=== PATIENT | female | born 1940 | race American Indian/Alaskan Native ===

== ENCOUNTER 2019-05-20 12:27 | Emergency (ER) | payer MEDICARE ==
[2019-05-20 13:00] VITALS: BP 149/60
--- NOTE | 2019-05-20 13:05 | Emergency Department Report ---
Chief Complaint: Pain General Stated Complaint: PAIN IN LEGS/BUTTOCKS/THIGHS Time Seen by Provider: 05/20/19 12:58 - HPI History of Present Illness: 79 y/o female comes in for 2 month of lower back pain that radiates down her buttock and travels down her legs. No falls no recent injuries. No urinary symptoms. Has had CT of back recently. Has had back surgery with laminectomy. - Exam Physical Exam: AxO times 3. NAD positive right straight leg test ambulating well. MSE screening note: Focused history and physical exam performed. Due to findings the following was ordered: 79 y/o female comes in for 2 month of lower back pain that radiates down her buttock and travels down her legs. No falls no recent injuries. No urinary symptoms. Has had CT of back recently. Has had back surgery with laminectomy. Referral to her PCP and back specialist. ED Disposition for [facility] [place] Disposition: Z-07 MED SCREENING EXAM-LEFT Is pt being admited?: No Does the pt Need Aspirin: No Condition: Stable Referrals: Your, PCP [Other] - 3-5 Days
== END 2019-05-20 15:09 | disposition left against medical advice (07) ==
LOC: ED 12:27
DX: M79.605 Pain in left leg (principal); M79.604 Pain in right leg; Z53.21 Procedure and treatment not carried out due to patient leaving prior to being seen by health care provider

== ENCOUNTER 2019-07-13 12:24 | Emergency (ER) | payer MEDICARE ==
[2019-07-13 12:55] VITALS: BP 138/68
[2019-07-13] MEDS ORDERED: ACETAMINOPHEN 325 MG TAB PO ONE (12:57)
--- NOTE | 2019-07-13 12:59 | Emergency Department Report ---
Chief Complaint: Arrhythmia/Palpitations Stated Complaint: PAIN IN BUTTOCK,LEG THIGH Time Seen by Provider: 07/13/19 12:58 - HPI History of Present Illness: 79 y/o female on home outpatient physical therapy, on home gabapentin and tinazidine for right leg pain muscle pain p/w rle radicular pain and resolved dyspnea and heart racing no dvt pe risk factors walks with a steady gait non focal motor exam exam labs ekg xr chest, rle dvt study reassess - Exam Vital Signs: Vital Signs 07/13/19 12:52 Temperature 97.2 F L Pulse Rate 82 Respiratory 18 Rate Blood Pressure 138/68 O2 Sat by Pulse 9 L Oximetry MSE screening note: Focused history and physical exam performed. Due to findings the following was ordered: ED Disposition for MSE Condition: Stable
--- NOTE | 2019-07-13 13:30 | XRay Report ---
CHEST PA AND LATERAL VIEWS INDICATION: hx of sob heart racing. COMPARISON: None. FINDINGS: Support devices: None. Heart: Within normal limits. Lungs/Pleura: No acute pulmonary or pleural findings. Midthoracic spondylosis is noted. No acute fracture is identified. IMPRESSION: 1. No acute findings. Signer Name: Dudley Davis MD Signed: 07/13/2019 1:25 PM Workstation Name: [id number]
--- NOTE | 2019-07-13 13:55 | Vascular Lab Report ---
DUPLEX DOPPLER LOWER EXTREMITY VEINS, RIGHT INDICATION: rle pain swelling. TECHNIQUE: Duplex doppler imaging was performed through the veins of the right lower extremity using venous comp ression and other maneuvers. COMPARISON: No relevant prior imaging study available. FINDINGS: Right Common femoral vein: Negative. Right Superficial femoral vein: Negative. Right Popliteal vein: Negative. Right Calf veins: Negative. Additional findings: None.. IMPRESSION: 1. No sonographic evidence for DVT in the right lower extremity. Signer Name: Tony Sarmiento MD Signed: 07/13/2019 1:50 PM Workstation Name: [email or web address]
[2019-07-13 14:52] LABS: INR 1.02 (0.87-1.13)
[2019-07-13 15:00] LABS: Alanine Aminotransferase 11 units/L (7-56); Albumin 4.3 g/dL (3.9-5); BUN/Creatinine Ratio 13; Blood Urea Nitrogen 9 mg/dL (7-17); Calcium 9.8 mg/dL (8.4-10.2); Hemolysis Index 19
--- NOTE | 2019-07-13 16:59 | Emergency Department Report ---
ED General Adult HPI - General Chief complaint: Arrhythmia/Palpitations Stated complaint: PAIN IN BUTTOCK,LEG THIGH Time Seen by Provider: 07/13/19 16:20 Source: patient Mode of arrival: Ambulatory Limitations: No Limitations - History of Present Illness Initial comments: This is a 79-year-old -[place] female who presents to the emergency room with right buttocks pain radiating to right leg for 3 months. Patient states her primary care doctor Obdesireekwe artery her on gabapentin and refer her to a physical therapist which has not changed symptoms. Patient reports occasional warm and sensation of heartbeat in right Calf. She also reports occasional palpitations which have resolved. Past medical history of prediabetes, hypertension, and TIA. She denies recent injury, shortness of breath, chest pain, weakness, or numbness or tingling. Onset/Timin -: month(s) Location: lower extremity (right) Severity scale (0 -10): 0 Quality: aching Consistency: intermittent Improves with: none Worsens with: movement Associated Symptoms: denies: chest pain, fever/chills, headaches, rash, shortness of breath, syncope, weakness Treatments Prior to Arrival: NSAID - Related Data Allergies Allergy/AdvReac Type Severity Reaction Status Date / Time No Known Allergies Allergy Verified 05/20/19 12:29 ED Review of Systems ROS: Stated complaint: PAIN IN BUTTOCK,LEG THIGH Other details as noted in HPI Constitutional: denies: chills, fever Respiratory: denies: cough, shortness of breath, wheezing Cardiovascular: palpitations. denies: chest pain Gastrointestinal: denies: abdominal pain, nausea, diarrhea Musculoskeletal: arthralgia (right leg pain). denies: back pain, joint swelling Skin: denies: rash, lesions Neurological: denies: headache, weakness, paresthesias Psychiatric: denies: anxiety, depression ED Past Medical Hx - Past Medical History Previous Medical History?: Yes Hx Hypertension: Yes Hx Diabetes: Yes (pre) Additional medical history: TIA - Surgical History Past Surgical History?: Yes Additional Surgical History: LUMBAR SURGERY - Social History Smoking Status: Never Smoker Substance Use Type: None ED Physical Exam - General Limitations: No Limitations General appearance: alert, in no apparent distress - Respiratory Respiratory exam: Present: normal lung sounds bilaterally. Absent: respiratory distress, wheezes, rales, rhonchi, stridor - Cardiovascular Cardiovascular Exam: Present: regular rate, normal rhythm. Absent: systolic murmur, diastolic murmur, rubs, gallop - GI/Abdominal GI/Abdominal exam: Present: soft, normal bowel sounds. Absent: distended, tenderness, guarding, rebound, rigid - Expanded Lower Extremity Exam Right Hip exam: Present: normal inspection, full ROM. Absent: tenderness, swelling, abrasion, laceration, ecchymosis, deformity, crepidus, dislocation, erythema, external rotation, internal rotation, shortening, pelvic stability Upper Leg exam: Present: normal inspection, full ROM Knee exam: Present: normal inspection, full ROM, full knee extension. Absent: tenderness, swelling, abrasion, laceration, ecchymosis, deformity, crepidus, dislocation, erythema, effusion, pain w/ pronation/supination, posterior draw sign, pain/laxity with valgus, pain/laxity with varus Lower Leg exam: Present: normal inspection, full ROM. Absent: tenderness, swelling, abrasion, laceration, ecchymosis, deformity, crepidus, dislocation, erythema, palpable cord, Erick's sign Ankle exam: Present: normal inspection, full ROM. Absent: tenderness, swelling, abrasion, laceration, ecchymosis, deformity, crepidus, dislocation, erythema, anterior draw sign Foot/Toe exam: Present: normal inspection, full ROM Neuro vascular tendon exam: Present: no vascular compromise Gait: Positive: observed and normal - Neurological Exam Neurological exam: Present: alert, oriented X3, normal gait - Psychiatric Psychiatric exam: Present: normal affect, normal mood - Skin Skin exam: Present: warm, dry, intact, normal color. Absent: rash ED Course Vital Signs 07/13/19 12:52 Temperature 97.2 F L Pulse Rate 82 Respiratory 18 Rate Blood Pressure 138/68 O2 Sat by Pulse 98 Oximetry ED Medical Decision Making - Lab Data Result diagrams: 07/13/19 14:02 Lab Results 07/13/19 07/13/19 07/13/19 Range/Units 14:02 14:02 14:02 PT 13.5 (12.2-14.9) Sec. INR 1.02 (0.87-1.13) Sodium 142 (137-145) mmol/L Potassium 4.2 (3.6-5.0) mmol/L Chloride 102.4 (98-107) mmol/L Carbon Dioxide 26 (22-30) mmol/L Anion Gap 18 mmol/L BUN 9 (7-17) mg/dL Creatinine 0.7 (0.7-1.2) mg/dL Estimated GFR > 60 ml/min BUN/Creatinine Ratio 13 % Glucose 106 H (65-100) mg/dL Calcium 9.8 (8.4-10.2) mg/dL Magnesium 1.70 (1.7-2.3) mg/dL Total Bilirubin 0.20 (0.1-1.2) mg/dL AST 24 (5-40) units/L ALT 11 (7-56) units/L Alkaline Phosphatase 89 (35-129) units/L Total Creatine Kinase 131 (30-135) units/L NT-Pro-B Natriuret Pep (0-900) pg/mL Total Protein 7.8 (6.3-8.2) g/dL Albumin 4.3 (3.9-5) g/dL Albumin/Globulin Ratio 1.2 % TSH 1.560 (0.270-4.200) mlU/mL 07/13/19 Range/Units 14:02 PT (12.2-14.9) Sec. INR (0.87-1.13) Sodium (137-145) mmol/L Potassium (3.6-5.0) mmol/L Chloride (98-107) mmol/L Carbon Dioxide (22-30) mmol/L Anion Gap mmol/L BUN (7-17) mg/dL Creatinine (0.7-1.2) mg/dL Estimated GFR ml/min BUN/Creatinine Ratio % Glucose (65-100) mg/dL Calcium (8.4-10.2) mg/dL Magnesium (1.7-2.3) mg/dL Total Bilirubin (0.1-1.2) mg/dL AST (5-40) units/L ALT (7-56) units/L Alkaline Phosphatase (35-129) units/L Total Creatine Kinase (30-135) units/L NT-Pro-B Natriuret Pep 74.77 (0-900) pg/mL Total Protein (6.3-8.2) g/dL Albumin (3.9-5) g/dL Albumin/Globulin Ratio % TSH (0.270-4.200) mlU/mL - EKG Data -: No EKG Interpreted by Me (EKG interpreted by attending) EKG shows normal: sinus rhythm Rate: normal - Radiology Data Radiology results: report reviewed DUPLEX DOPPLER LOWER EXTREMITY VEINS, RIGHT INDICATION: rle pain swelling. TECHNIQUE: Duplex doppler imaging was performed through the veins of the right lower extremity using venous compression and other maneuvers. COMPARISON: No relevant prior imaging study available. FINDINGS: Right Common femoral vein: Negative. Right Superficial femoral vein: Negative. Right Popliteal vein: Negative. Right Calf veins: Negative. Additional findings: None.. IMPRESSION: 1. No sonographic evidence for DVT in the right lower extremity. CHEST PA AND LATERAL VIEWS INDICATION: hx of sob heart racing. COMPARISON: None. FINDINGS: Support devices: None. Heart: Within normal limits. Lungs/Pleura: No acute pulmonary or pleural findings. Midthoracic spondylosis is noted. No acute fracture is identified. IMPRESSION: 1. No acute findings. - Medical Decision Making This is a 79-year-old female who presents to the emergency room with palpitations and right lower extremity pain. Patient states palpitations are resolved. Workup: PT/INR, CK, BNP, TSH, and CMP. All labs are unremarkable. A duplex Doppler of left lower extremity was obtained and negative for DVT. Chest x-ray negative for acute cardiopulmonary findings. No unilateral leg swelling or warmth to right calf on exam. Patient is nontoxic appearing, VSS. No lymphangitic spread visible. No fluid pockets or fluctuance concerning for abscess noted. Low concern for cellulitis or osteomyelitis. Symptoms not consistent with heart failure. Instructed patient to follow up with primary c are physician in next 48 hours as well. Patient given strict return instructions. Patient discharged home stable. Critical care attestation.: If time is entered above; I have spent that time in minutes in the direct care of this critically ill patient, excluding procedure time. ED Disposition Clinical Impression: Pain of right leg, Palpitations Disposition: - TO HOME OR SELFCARE Is pt being admited?: No Condition: Stable Instructions: Arthralgia (ED) Additional Instructions: Follow-up with your primary care doctor in 2-3 days. Continue going to physical therapy as your primary care doctor instructed. Return to the emergency room if you have worsening symptoms such as warmth, redness, swelling to right leg, shortness of breath, palpitations, or chest pain. Referrals: DELBERT ALMARAZ MD [Primary Care Provider] - 3-5 Days Time of Disposition: 17:03
== END 2019-07-13 17:25 | disposition home or self-care (01) ==
LOC: ED 12:24
DX: M25.551 Pain in right hip (principal); R00.2 Palpitations; I10 Essential (primary) hypertension; E11.9 Type 2 diabetes mellitus without complications; Z98.890 Other specified postprocedural states
CPT/HCPCS: 36415; 71046; 80048; 80053; 82550; 83735; 83880; 84443; 85610; 93005; 93010

== ENCOUNTER 2020-03-27 14:50 | Emergency (ER) | payer MEDICARE ==
[2020-03-27 15:01] VITALS: BP 152/63
--- NOTE | 2020-03-27 15:01 | Event Note ---
ED Screening Note Date of service: 03/27/20 Time: 15:00 ED Screening Note: c/o painful lump atop coccyx x 1 month pain is worsening per pt no fever This initial assessment/diagnostic orders/clinical plan/treatment(s) is/are subject to change based on patients health status, clinical progression and re- assessment by fellow clinical providers in the ED. Further treatment and workup at subsequent clinical providers discretion. Patient/guardian urged not to elope from the ED as their condition may be serious if not clinically assessed and managed. Initial orders include: further eval in [facility]
--- NOTE | 2020-03-27 18:39 | Cat Scan Report ---
CT PELVIS WITHOUT CONTRAST INDICATION / CLINICAL INFORMATION: Tenderness to the coccyx. TECHNIQUE: Axial CT images were obtained through the pelvis without contrast. All CT scans at this location are performed using CT dose reduction for ALARA by means of automated exposure control. COMPARISON: None available. FINDINGS: BONES: No fracture. No osseous lesion. Specifically, no acute fracture of the coccyx or sacrum. HIP JOINTS: No significant abnormality. SACROILIAC JOINTS: Mild bilateral degenerative arthrosis. SOFT TISSUES: No significant abnormality. LOWER LUMBAR SPINE: Posterior fusion hardware with moderate discogenic spondylosis at L5-S1. SOFT TISSUES WITHIN PELVIS: No acute findings. ADDITIONAL FINDINGS: None. IMPRESSION: 1. No acute fracture or subluxation of the coccyx, sacrum, or bony pelvis. Signer Name: Faby Mendoza MD Signed: 03/27/2020 6:34 PM Workstation Name: [id number]
--- NOTE | 2020-03-27 19:36 | Emergency Department Report ---
ED General Adult HPI - General Chief complaint: Skin/Abscess/Foreign Body Stated complaint: BUTTOCK PAINS Time Seen by Provider: 03/27/20 14:59 Source: patient Mode of arrival: Wheelchair Limitations: No Limitations - History of Present Illness Initial comments: Patient is 80 years old female with history of hypertension. Patient presented to the ER complaining of pain to the coccyx area for the last 2 months. Patient stated that pain increase with bowel movement. Patient denies any recent fever or chills. No recent injury. Patient did not notice any abscess however she is pointing to the coccyx upon stating that it hurt when you pushed on it. - Related Data Allergies Allergy/AdvReac Type Severity Reaction Status Date / Time No Known Allergies Allergy Verified 05/20/19 12:29 ED Review of Systems ROS: Stated complaint: BUTTOCK PAINS Other details as noted in HPI Comment: All other systems reviewed and negative Constitutional: denies: chills, fever Respiratory: denies: cough, shortness of breath, SOB with exertion Cardiovascular: denies: chest pain, palpitations Gastrointestinal: denies: abdominal pain, nausea, vomiting, diarrhea, constipation, hematemesis, melena, hematochezia Musculoskeletal: denies: back pain Neurological: denies: headache, weakness, numbness, paresthesias, confusion ED Past Medical Hx - Past Medical History Previous Medical History?: Yes Hx Hypertension: Yes Hx Diabetes: Yes (pre) Additional medical history: TIA - Surgical History Past Surgical History?: Yes Additional Surgical History: LUMBAR SURGERY - Social History Smoking Status: Never Smoker Substance Use Type: None ED Physical Exam - General Limitations: No Limitations General appearance: alert, in no apparent distress - Head Head exam: Present: atraumatic, normocephalic, normal inspection - Eye Eye exam: Present: normal appearance - ENT ENT exam: Present: normal exam, normal orophraynx, mucous membranes moist - Neck Neck exam: Present: normal inspection, full ROM. Absent: tenderness, meningismus - Respiratory Respiratory exam: Present: normal lung sounds bilaterally - Cardiovascular Cardiovascular Exam: Present: regular rate, normal rhythm, normal heart sounds - GI/Abdominal GI/Abdominal exam: Present: soft, normal bowel sounds. Absent: distended, tenderness, guarding, rebound, rigid, organomegaly, mass, bruit, pulsatile mass, hernia - Rectal Rectal exam: Absent: bloody stool, mass, tenderness - Extremities Exam Extremities exam: Present: normal inspection - Back Exam Back exam: Absent: CVA tenderness (R), CVA tenderness (L) - Neurological Exam Neurological exam: Present: alert, oriented X3, CN II-XII intact, normal gait, reflexes normal. Absent: motor sensory deficit - Psychiatric Psychiatric exam: Present: normal mood - Skin Skin exam: Present: warm, intact, normal color ED Course Vital Signs 03/27/20 14:58 Pulse Rate 62 Respiratory 18 Rate Blood Pressure 152/63 O2 Sat by Pulse 96 Oximetry ED Medical Decision Making - Radiology Data Radiology results: report reviewed - Medical Decision Making Patient is 80 years old female with history of hypertension. Patient presented to the ER complaining of pain to the coccyx area for the last 2 months. Patient stated that pain increase with bowel movement. Patient denies any recent fever or chills. No recent injury. Patient did not notice any abscess however she is pointing to the coccyx upon stating that it hurt when you pushed on it. CT of the pelvis without contrast showed no evidence of fracture or dislocation. Soft tissue is unremarkable. No acute emergency at this point patient advised to follow-up with her primary doctor. I will provide patient with stool softener and anti-inflammatory medicine in case there is an inflammation in her coccyx area. Patient advised to return to the ER if she develop any new symptoms. Critical care attestation.: If time is entered above; I have spent that time in minutes in the direct care of this critically ill patient, excluding procedure time. ED Disposition Clinical Impression: Coccyx pain Disposition: DC-01 TO HOME OR SELFCARE Is pt being admited?: No Condition: Stable Instructions: Arthralgia (ED), Lumbar Radiculopathy (ED) Referrals: PRIMARY CARE, [Primary Care Provider] - 3-5 Days
== END 2020-03-27 19:58 | disposition home or self-care (01) ==
LOC: ED 14:50
DX: M53.3 Sacrococcygeal disorders, not elsewhere classified (principal); I10 Essential (primary) hypertension; E11.9 Type 2 diabetes mellitus without complications; Z98.890 Other specified postprocedural states
CPT/HCPCS: 72192